=== PATIENT | male | born 1950 | race Two or more races ===

== ENCOUNTER 2017-08-07 11:09 | Outpatient (CLI) | payer OTHER ==
[~2017-08-07 11:09] MED LIST: ADULT ASPIRIN81 MG; AMLODIPINE BESYL5 MG; ATENOLOL100 MG; GABAPENTIN100 MG; GEMFIBROZIL600 MG; GLUCOPHAGE XR500 MG; MOTRIN800 MG PO; NAPROXEN500 MG PO; ORPH100T PO; SIMVASTATIN20 MG
== END 2017-08-07 11:13 | disposition home or self-care (01) ==
LOC: RAD 11:09
DX: J44.9 Chronic obstructive pulmonary disease, unspecified (principal)

== ENCOUNTER 2018-09-30 09:16 | Outpatient (CLI) | payer OTHER | END 2018-09-30 14:37 | disposition home or self-care (01) | LOC: RAD 09:16 | DX: M17.0 Bilateral primary osteoarthritis of knee (principal) ==

== ENCOUNTER → 2018-09-30 | Outpatient (CLI) | payer OTHER | END | disposition home or self-care (01) | LOC: TOM 09:45 | DX: I63.89 Other cerebral infarction (principal) ==

== ENCOUNTER → 2019-10-19 08:23 | Outpatient (CLI) | payer OTHER | END | disposition home or self-care (01) | LOC: RAD 08:23 | DX: C78.00 Secondary malignant neoplasm of unspecified lung (principal); C02.4 Malignant neoplasm of lingual tonsil ==

== ENCOUNTER 2020-11-14 07:12 | Outpatient (CLI) | payer OTHER | END 2020-11-14 07:13 | disposition home or self-care (01) | LOC: NUCLEAR 07:12 | PROVIDERS: ATTEND Internal Medicine Hematology & Oncology | DX: C02.4 Malignant neoplasm of lingual tonsil (principal); G89.3 Neoplasm related pain (acute) (chronic) | CPT/HCPCS: 78306; A9503 ==

== ENCOUNTER 2021-10-01 09:18 | Outpatient (CLI) | payer OTHER | END 2021-10-01 09:19 | disposition home or self-care (01) | LOC: RAD 09:18 | PROVIDERS: ATTEND General Practice | DX: J44.0 Chronic obstructive pulmonary disease with (acute) lower respiratory infection (principal); I50.1 Left ventricular failure, unspecified ==

== ENCOUNTER 2022-09-04 09:39 | Outpatient (CLI) | payer OTHER | END 2022-09-04 09:49 | disposition home or self-care (01) | LOC: SONOGRAMA 09:39 | PROVIDERS: ATTEND General Practice | DX: E04.8 Other specified nontoxic goiter (principal) ==

== ENCOUNTER 2025-03-03 11:43 | Outpatient (CLI) | payer OTHER | END 2025-03-03 11:45 | disposition home or self-care (01) | LOC: RAD 11:43 | PROVIDERS: ATTEND Ophthalmology | DX: Z01.811 Encounter for preprocedural respiratory examination (principal) ==

== ENCOUNTER 2025-03-03 13:31 | Outpatient (CLI) | payer OTHER | END 2025-03-03 13:32 | disposition home or self-care (01) | LOC: LAB 13:31 → EKG 13:31 → LAB 13:32 | PROVIDERS: ATTEND Ophthalmology | DX: I10 Essential (primary) hypertension (principal) ==